=== PATIENT | male | born 1980 ===

== ENCOUNTER 2017-12-21 13:24 | Emergency (ER) | payer SELFPAY ==
[2017-12-21 13:30] VITALS: RESP 18
[2017-12-21 13:31] VITALS: BMI 24.3
--- NOTE | 2017-12-21 14:01 | ED PDOC ---
Upper Extremity Pain/Injury Time Seen by Provider: 12/21/17 13:39 Chief Complaint (Nursing): Upper Extremity Problem/Injury Chief Complaint (Provider): Right Wrist Fx History Per: Patient History/Exam Limitations: no limitations Onset/Duration Of Symptoms: Days (x20) Current Symptoms Are (Timing): Still Present Additional Complaint(s): 37 year old male presents to the ED for evaluation of a right wrist fracture. Patient reports 20 days ago he was seen at [facility] ED and diagnosed with the fx s/p falling from a ladder and was advised to follow up with ortho Dr. Ted dumont, but could not due to insurance issues. After calling the farm [employer] service, he was instructed to follow up with the hospital if he does not have insurance, prompting his visit today. Initial splint still intact. Otherwise, denies pain. No complaints at present. Right hand dominant PMD: none provided Past Medical History Reviewed: Historical Data, Nursing Documentation, Vital Signs Vital Signs: Last Vital Signs Temp 97.6 F 12/21/17 13:29 Pulse 92 H 12/21/17 13:29 Resp 18 12/21/17 13:29 BP 111/72 12/21/17 13:29 Pulse Ox 97 12/21/17 13:29 - Medical History PMH: Fractures - Surgical History Surgical History: No Surg Hx - Family History Family History: States: Unknown Family Hx - Home Medications Home Medications: Ambulatory Orders Medication Instructions Recorded Ibuprofen [Motrin] 600 mg PO Q6H PRN #20 tab 12/05/17 - Allergies Allergies/Adverse Reactions: Allergies Allergy/AdvReac Type Severity Reaction Status Date / Time No Known Allergies Allergy Verified 12/05/17 09:31 Review of Systems ROS Statement: Except As Marked, All Systems Reviewed And Found Negative Musculoskeletal: Positive for: Other (right wrist fx) Physical Exam - Reviewed Nursing Documentation Reviewed: Yes Vital Signs Reviewed: Yes - Physical Exam Comments: GENERAL APPEARANCE: Patient is awake, alert, oriented x 3, in no acute distress. Resting comfortably. SKIN: Warm, dry; (-) cyanosis. NECK: Supple, FROM ENT: Mucus membranes moist. Airway patent, (-) stridor. CHEST AND RESPIRATORY: (-) rales, (-) rhonchi, (-) wheezes; breath sounds equal bilaterally. Respirations even and nonlabored. HEART AND CARDIOVASCULAR: (-) irregularity RIGHT UPPER EXTREMITY: Sugar tong splint and thumb spica splint in place to upper extremity. After removal: Small effusion to right wrist, minimal tenderness to dorsum of wrist. Sensation intact throughout. (+)pulses. Full ROM of digits. No ecchymosis, skin break, erythema, or warmth. Remainder of extremity nontender with FROM. NEURO AND PSYCH: Mental status as above. Gait: steady. Speech: clear. (-) facial asymmetry - ECG O2 Sat by Pulse Oximetry: 97 (RA) Pulse Ox Interpretation: Normal Medical Decision Making Medical Decision Making: Initial Impression: wrist fx s/p fall Time: 1400 Initial Plan: --XR right wrist Right wrist xray from 2017 X-ray of right wrist reviewed by radiologist, shows: FINDINGS: BONES: There is a nondisplaced transverse fracture of the ulnar styloid and a longitudinally oriented nondisplaced fracture of the distal radius extending into the articular surface. JOINTS: Normal. No dislocation. SOFT TISSUES: Normal. OTHER FINDINGS: None. IMPRESSION: There is a nondisplaced transverse fracture of the ulnar styloid and a longitudinally oriented nondisplaced fracture of the distal radius extending into the articular surface. 1440 Date of service: 12/21/2017 PROCEDURE: Right Wrist Radiographs. HISTORY: dx with wrist frac 12/05/17 COMPARISON: None. FINDINGS: BONES: Lateral view suggest a nondisplaced radial articular surface fracture less apparent on other views. A nondisplaced complete ulnar styloid fracture fragment noted. JOINTS: No dislocation. Mild radiocarpal joint space narrowing inferred as to early degenerative changes noted SOFT TISSUES: Normal. OTHER FINDINGS: None. IMPRESSION: Fractures as above comparison with prior studies to assess for any interval healing recommended New sugar tong and thumb spica splint placed to upper extremity by social workerMarva Grover. Neurovascularly intact after placement. Advised to use sling provided by [facility] as needed. 0510 Dr Tariq spoke with Dr Chan, [facility], who advises that patient is to return to ED in 2 weeks for repeat evaluation/XRs. On exam, patient remains AAOx3, in no acute distress. Lungs clear to auscultation, cardiac RRR, repeat neuro exam shows no focal findings. Vitals stable. Lab/Diagnostic results d/w the patient in great detail. Diagnosis of wrist fracture s/p fall d/w the patient. Patient declined Rx medication. Based on history, exam and diagnostic results, plan will be for follow up in ED in [address] Tariq. Patient to return to ED for repeat films in 2 weeks. Return to the emergency room at any time for any new or worsening symptoms. Patient states he fully agrees with and understands discharge instructions. States that he agrees with the plan and disposition. Verbalized and repeated discharge instructions and plan. I have given the patient opportunity to ask any additional questions. Scribe Attestation: Documented by Quita Lipscomb, acting as a scribe for Savannah Wetzel PA-C. Provider Scribe Attestation: All medical record entries made by the Scribe were at my direction and persona lly dictated by me. I have reviewed the chart and agree that the record accurately reflects my personal performance of the history, physical exam, medical decision making, and the department course for this patient. I have also personally directed, reviewed, and agree with the discharge instructions and disposition. Disposition - Clinical Impression Clinical Impression: Wrist fracture, closed, Fall from ladder - Patient ED Disposition Is Patient to be Admitted: No Counseled Patient/Family Regarding: Studies Performed, Diagnosis, Need For Followup - Disposition Disposition: Routine/Home Disposition Time: 15:35 Condition: STABLE Additional Instructions: RETURN TO THE EMERGENCY DEPARTMENT IN 2 WEEKS FOR REPEAT EVALUATION/XRAYS. KEEP SPLINT INTACT, CLEAN, AND DRY. RETURN TO ED IMMEDIATELY WITH ANY NEW OR WORSENING SYMPTOMS. USE MOTRIN/TYLENOL NEEDED FOR PAIN. VUELVA AL DEPARTAMENTO DE EMERGENCIA EN 2 SEMANAS PARA REPETIR LA EVALUACIN / XRAYS. MANTENGA DIVIDIDO INTACTO, LIMPIO Y SECO. REGRESE A ED INMEDIATAMENTE CON SNTOMAS NUEVOS O DE REFERENCIA. Instructions: Wrist Fracture (DC) Forms: [employer] (Indonesian) Print Language: CITIZEN OF [place] Present On Arrival: Falls Or Trauma (11/2017)
--- NOTE | 2017-12-21 14:36 | RAD ---
Date of service: 12/21/2017 PROCEDURE: Right Wrist Radiographs. HISTORY: dx with wrist frac 12/05/17 COMPARISON: None. FINDINGS: BONES: Lateral view suggest a nondisplaced radial articular surface fracture less apparent on other views. A nondisplaced complete ulnar styloid fracture fragment noted. JOINTS: No dislocation. Mild radiocarpal joint space narrowing inferred as to early degenerative changes noted SOFT TISSUES: Normal. OTHER FINDINGS: None. IMPRESSION: Fractures as above comparison with prior studies to assess for any interval healing recommended
[2017-12-21 15:54] VITALS: BP 120/68; PULSE 85; TEMP 97.7
[2017-12-22 12:50] VITALS: O2SAT 97
== END 2017-12-21 15:50 | disposition home or self-care (01) ==
LOC: H.ER 13:24
DX: S52.571D Other intraarticular fracture of lower end of right radius, subsequent encounter for closed fracture with routine healing (principal); W11.XXXD Fall on and from ladder, subsequent encounter; Y92.89 Other specified places as the place of occurrence of the external cause

== ENCOUNTER 2018-01-05 09:28 | Emergency (ER) | payer SELFPAY ==
[2018-01-05 10:28] VITALS: BP 110/76; PULSE 75; RESP 16; TEMP 98; O2SAT 97; BMI 24.7
--- NOTE | 2018-01-05 11:27 | ED PDOC ---
Upper Extremity Pain/Injury Time Seen by Provider: 01/05/18 11:25 Chief Complaint (Nursing): Wound Check Chief Complaint (Provider): RIGHT WRIST INJURY History Per: Patient (37 Y/O MALE HERE FOR FOLLOW UP IN ED FOR WRIST FX. PATIENT WAS SEEN 2 WEEKS PRIOR AFTER BEING UNSUCCESSFUL IN ATTEMPT TO OBTAIN ORTHO FOLLOW UP. ADVISED TO RETURN TO ED IN 2 WEEKS FOR REPEAT XRY.) Past Medical History Reviewed: Historical Data, Nursing Documentation, Vital Signs Vital Signs: Last Vital Signs Temp 98 F 01/05/18 10:27 Pulse 75 01/05/18 10:27 Resp 16 01/05/18 10:27 BP 110/76 01/05/18 10:27 Pulse Ox 97 01/05/18 10:27 - Medical History PMH: Fractures - Family History Family History: States: Unknown Family Hx - Home Medications Home Medications: Ambulatory Orders Medication Instructions Recorded Ibuprofen [Motrin] 600 mg PO Q6H PRN #20 tab 12/05/17 - Allergies Allergies/Adverse Reactions: Allergies Allergy/AdvReac Type Severity Reaction Status Date / Time No Known Allergies Allergy Verified 01/05/18 10:55 Review of Systems ROS Statement: Except As Marked, All Systems Reviewed And Found Negative Musculoskeletal: Positive for: Other (WRIST INJURY) Physical Exam - Reviewed Nursing Documentation Reviewed: Yes Vital Signs Reviewed: Yes - Physical Exam Appears: Positive for: Well, Non-toxic, No Acute Distress Head Exam: Positive for: ATRAUMATIC, NORMAL INSPECTION, NORMOCEPHALIC Skin: Positive for: Normal Color, Warm, DRY Eye Exam: Positive for: EOMI, Normal appearance, PERRL ENT: Positive for: Normal ENT Inspection Neck: Positive for: Normal, Painless ROM Cardiovascular/Chest: Positive for: Regular Rate, Rhythm Respiratory: Positive for: CNT, Normal Breath Sounds Gastrointestinal/Abdominal: Positive for: Normal Exam, Soft Back: Positive for: Normal Inspection Extremity: Positive for: Normal ROM, Other (PATIENT IN SUGARTONG SPLINT RIGHT ARM. ABLE TO MOVE DIGITS WITHOUT DIFFICULTY.) Neurologic/Psych: Positive for: Alert, Oriented - ECG O2 Sat by Pulse Oximetry: 97 - Progress ED Course And Treament: Patient declines pain medications. wrist xry: reviewed by radiology with nonhealing radius distal. distal ulnar styloid healing no union d/w Dr. Tariq. Patient will be called today to arrange f/u with ortho. Disposition - Clinical Impression Clinical Impression: Wrist fracture, closed - Patient ED Disposition Is Patient to be Admitted: No - Disposition Disposition: Routine/Home Disposition Time: 13:28 Condition: FAIR Instructions: Wrist Fracture (DC) Print Language: KAZAKH
--- NOTE | 2018-01-05 11:48 | RAD ---
Date of service: 01/05/2018 PROCEDURE: Right Wrist Radiographs. HISTORY: h/o wrist fx. COMPARISON: None. FINDINGS: BONES: Evaluation limited by overlying fiberglass splint. Nondisplaced intra-articular distal radial fracture. Nondisplaced fracture ulnar styloid process. No carpal fracture. Normal carpal alignment maintained. JOINTS: Normal. No dislocation. SOFT TISSUES: Normal. OTHER FINDINGS: None. IMPRESSION: Nondisplaced intra-articular distal radial fracture and ulnar styloid process fracture.
== END 2018-01-05 14:06 | disposition home or self-care (01) ==
LOC: H.ER 09:28
DX: Z47.89 Encounter for other orthopedic aftercare (principal)

== ENCOUNTER 2018-02-01 23:00 | Emergency (ER) | payer SELFPAY ==
[2018-02-01 23:00] VITALS: BMI 24.7
[2018-02-01 23:06] VITALS: BP 120/76; PULSE 86; RESP 16; TEMP 97.6; O2SAT 98
--- NOTE | 2018-02-02 00:31 | ED PDOC ---
Upper Extremity Pain/Injury Time Seen by Provider: 02/01/18 23:00 Chief Complaint (Nursing): Upper Extremity Problem/Injury Chief Complaint (Provider): Upper Extremity Problem/Injury History Per: Patient History/Exam Limitations: no limitations Onset/Duration Of Symptoms: Days (x2) Additional Complaint(s): 37 y/o male with right wrist fracture on 12/05 presents to ER for funny sensation and skin sensitivity to the area of injury for the past 2 days. Patient reports he has been following up with an orthopedic in [place] who casted his wrist and removed the cast last week. He states 5 days ago he used an electric shock machine on his right shoulder but 2 days ago started this comfort. He denies any fever or other symptoms. PMD: non provided Past Medical History Reviewed: Historical Data, Nursing Documentation, Vital Signs Vital Signs: Last Vital Signs Temp 97.6 F 02/01/18 23:05 Pulse 86 02/01/18 23:05 Resp 16 02/01/18 23:05 BP 120/76 02/01/18 23:05 Pulse Ox 98 02/01/18 23:05 ANDERS report viewed?: Yes - Medical History PMH: No Chronic Diseases, Fractures - Surgical History Surgical History: No Surg Hx - Family History Family History: States: Unknown Family Hx - Social History Current smoker - smoking cessation education provided: No Alcohol: None Drugs: Denies - Home Medications Home Medications: Ambulatory Orders Medication Instructions Recorded Ibuprofen [Motrin] 600 mg PO Q6H PRN #20 tab 12/05/17 - Allergies Allergies/Adverse Reactions: Allergies Allergy/AdvReac Type Severity Reaction Status Date / Time No Known Allergies Allergy Verified 02/01/18 23:06 Review of Systems ROS Statement: Except As Marked, All Systems Reviewed And Found Negative Constitutional: Negative for: Fever Musculoskeletal: Positive for: Arm Pain (Right wrist) Physical Exam - Reviewed Nursing Documentation Reviewed: Yes Vital Signs Reviewed: Yes - Physical Exam Appears: Positive for: Non-toxic, No Acute Distress Head Exam: Positive for: ATRAUMATIC, NORMOCEPHALIC Skin: Positive for: Normal Color, Warm (right arm), Dry Eye Exam: Positive for: Normal appearance Extremity: Positive for: Normal ROM (of right arm), Capillary Refill (less than 2 seconds), Swelling (residual to right wrist), Other (radial pulse 2+. from of fingers and elbow, wrist itself still slightly swollen from injury. ). Negative for: Tenderness, Deformity Neurologic/Psych: Positive for: Alert, Oriented (x3) - ECG O2 Sat by Pulse Oximetry: 98 (RA) Pulse Ox Interpretation: Normal Medical Decision Making Medical Decision Making: Time: 24 --pt wearing splint on R forearm. i removed it in order to examine pt. pt has no new falls or injuries so no need for new xrays. pt states doesnt have "funny feeling" in arm at this time but did since the cast was taken off. 0044 --Explained to patient that the abnormality sensation is common after a cast is taken off and it could be due to the electric shocks he was delivering to r shoulder --PE is consistent with healing fracture, advised patient to follow up with a orthopedist Scribe Attestation: Documented by Kristin Blevins, acting as a scribe for Colette Barrett MD. Provider Scribe Attestation: All medical record entries made by the Scribe were at my direction and personally dictated by me. I have reviewed the chart and agree that the record accurately reflects my personal performance of the history, physical exam, medical decision making, and the department course for this patient. I have also personally directed, reviewed, and agree with the discharge instructions and disposition. Disposition - Clinical Impression Clinical Impression: Arm paresthesia, right, Skin sensitivity - Patient ED Disposition Is Patient to be Admitted: No Counseled Patient/Family Regarding: Studies Performed, Diagnosis, Need For Followup - Disposition Disposition: Routine/Home Disposition Time: 00:30 Condition: IMPROVED Additional Instructions: follow up with orthopedist in [place] in 1-2 days return to the ED with any worsening or concerning symptoms Instructions: Paresthesias (DC) Forms: [employer] (Tajik), [employer] (Serbian) Print Language: SERBIAN
== END 2018-02-02 01:01 | disposition home or self-care (01) ==
LOC: H.ER 23:00
DX: R20.0 Anesthesia of skin (principal)